=== PATIENT | female | born 1990 | race Two or more races ===

== ENCOUNTER → 2022-07-04 | Outpatient (CLI) | payer OTHER ==
[2022-07-04 10:47] LABS: Basophils # (auto) 0 10 ^3/uL (0-0.2); Basophils % (auto) 0.3 % (0.0-2.0); Eosinophils # (auto) 0.2 10 ^3/uL (0-0.8); Eosinophils % (auto) 1.9 % (0.0-7.0); Hematocrit 42.2 % (36.0-46.0); Hemoglobin 13.9 g/dL (12.2-16.2); Lymphocytes # (auto) 1.6 10 ^3/uL (0.4-5.4); Lymphocytes % (auto) 19.3 % (10.0-50.0); Mean Corpuscular Hemoglobin 29.9 pg (28.0-32.0); Mean Corpuscular Hgb Conc. 32.9 g/dL (32.0-36.0); Monocytes # (auto) 0.6 10 ^3/uL (0-1.3); Monocytes % (auto) 6.7 % (0.0-12.0); Neutrophils # (auto) 6.1 10 ^3/uL (1.6-8.6); Neutrophils % (auto) 71.8 % (37.0-80.0); Red Blood Cells 4.64 10^6/uL (4.0-5.20); Red Cell Distribution Width 13.2 % (11.8-14.3); White Blood Cell 8.5 10^3/uL (4.4-10.8)
[2022-07-04 11:28] LABS: Alcohol, Urine < 3.0 mg/dL (0-10); Amphetamine Screen, Urine NEGATIVE (NEGATIVE); Barbiturate Scree,Urine NEGATIVE (NEGATIVE); Benzodiazephine Screen, Urine NEGATIVE (NEGATIVE); Cannabinoid Screen, Urine NEGATIVE (NEGATIVE); Opiate Scree,Urine NEGATIVE (NEGATIVE); Phencyclidine Screen, Urine NEGATIVE (NEGATIVE)
[2022-07-04 11:48] LABS: Cocaine Screen, Urine NEGATIVE (NEGATIVE)
[2022-07-05 06:07] LABS: RPR Non Reactive (Non Reactive)
== END | disposition home or self-care (01) ==
LOC: LAB 09:58
PROVIDERS: ATTEND Obstetrics & Gynecology
DX: Z34.00 Encounter for supervision of normal first pregnancy, unspecified trimester (principal); N39.0 Urinary tract infection, site not specified; Z31.430 Encounter of female for testing for genetic disease carrier status for procreative management; Z3A.00 Weeks of gestation of pregnancy not specified
CPT/HCPCS: 36415; 80307; 83036; 84112; 84144; 84702; 85025; 86592; 86703; 86762; 86850; 86900; 86901; 87086; 87340